=== PATIENT | female | born 1995 | race Caucasian/White ===

== ENCOUNTER 2016-10-15 11:42 | Day surgery (SDC) | payer BC ==
--- NOTE | ~2016-10-15 | OP ---
Record Of Operation [facility] [address] [place]. [address] NAME: MAYO BANEGAS : 89 STATUS : [facility]#: [id number] AGE: 21 ADM/REG DATE : 10/15/16 MR#: [id number] REPORT SERV DATE: 10/15/16 DICTATED BY: LESLI LOMBARDI DATE: 10/15/16 REPORT STATUS : Draft TRANSCRIBED BY: MODAngel DATE: 10/15/16 DATE OF PROCEDURE: 10/15/2016 PREOPERATIVE DIAGNOSIS: Right ureteral stone. POSTOPERATIVE DIAGNOSIS: Right ureteral stone. PROCEDURE PERFORMED: Right extracorporeal shockwave lithotripsy (ureteral stone), initial treatment. ANESTHESIA: MAC. COMPLICATIONS: None. DRAINS: None. INDICATIONS: Ms. Banegas is a 21-year-old with a symptomatic 1.2 cm right proximal ureteral stone. Stone was not clearly visualized on preop KUB, thus lithotripsy was performed with the addition of IV contrast. TECHNIQUE: Informed consent was obtained. She was brought to the operating room. Biplanar fluoroscopy was performed. I was unable to identify the right upper ureteral stone. 50 mL of Isovue-300 was given intravenously. At 35 minutes, there was a standing column of contrast within the dilated right upper ureter. We identified the transition point, the obstructed site. The calcified stone was still not clearly visualized. A total of 3000 shocks were administered at this level. It was approximately L5. The Dornier Compact Delta II shockwave lithotripter was utilized. Power level 4 was utilized. Shocks were administered at 120 shocks per minute. It was not possible to gauge fragmentation. She will follow up in two to three weeks with a renal ultrasound. If hydronephrosis and/or pain persists, then ureteroscopy would be necessary. KEMAL/AZALEA Lesli Lombardi M.D. / [id number] CC: Lesli Lombardi M.D.
[~2016-10-15 11:42] MED LIST: NORCO1 TA1 PO; PHENTERMINE37.5 MG PO; ZOFRAN ODT4 MG PO
[2016-10-15 12:48] LABS: ASCORBIC ACID (UR NOT ORDER) NEG (NEG); BILIRUBIN, URINE NEGATIVE (NEG); KETONE, URINE NEGATIVE (NEG); LEUKOCYTE ESTERASE(NOT OR MOD (NEG); WBC (NOT ORDERED) (RFLEX) 25 (0-5)
== END 2016-10-15 16:57 | disposition home or self-care (01) ==
LOC: SDC 11:42
PROVIDERS: Urology
PROC: 0TF6XZZ Fragmentation in Right Ureter, External Approach (ICD-10-PCS; principal; 2016-10-15 14:00)
DX: N20.1 Calculus of ureter (principal); Z87.442 Personal history of urinary calculi; E66.9 Obesity, unspecified; Z88.0 Allergy status to penicillin; Z88.2 Allergy status to sulfonamides; Z88.1 Allergy status to other antibiotic agents; Z79.899 Other long term (current) drug therapy; Z79.891 Long term (current) use of opiate analgesic
CPT/HCPCS: 50590; 74000; 81001; 84703; 87086; J2250; J2405; J3010; Q9967